=== PATIENT | male | born 1970 | race Caucasian/White ===

== ENCOUNTER → 2020-05-05 | Outpatient (CLI) | payer OTHER | END | disposition home or self-care (01) | LOC: CFH 08:55 | PROVIDERS: ATTEND Nurse Practitioner Primary Care | DX: M50.322 Other cervical disc degeneration at C5-C6 level (principal); G43.909 Migraine, unspecified, not intractable, without status migrainosus; M48.02 Spinal stenosis, cervical region; Z87.39 Personal history of other diseases of the musculoskeletal system and connective tissue; Z83.438 Family history of other disorder of lipoprotein metabolism and other lipidemia; Z82.49 Family history of ischemic heart disease and other diseases of the circulatory system | CPT/HCPCS: 72040 ==